=== PATIENT | male | born 1955 | race Caucasian/White ===

== ENCOUNTER 2016-05-06 10:30 | Inpatient (IN) | payer SELFPAY ==
--- NOTE | 2016-05-06 10:40 | ER Document Report ---
ED Medical Screen (RME) - General Stated Complaint: DIFFICULTY BREATHING Mode of Arrival: Ambulatory Information source: Patient Notes: 60 y/o M presents to ED c/o right sided chest/thorax pain worse with cough and deep breathing which began last week. Reports associated sob, fever, and productive cough. States evaluated at urgent care last week but symptoms worsening. I have greeted and performed a rapid initial assessment of this patient. A comprehensive ED assessment and evaluation of the patient, analysis of test results and completion of the medical decision making process will be conducted by additional ED providers. TRAVEL OUTSIDE OF THE [place] IN LAST 30 DAYS: No - Related Data Allergies/Adverse Reactions: No Known Allergies Allergy (Unverified 06/03/14 19:47) Past Medical History - Past Medical History Cardiac Medical History: Reports: Hx Hypertension Past Surgical History: Reports: Hx Cholecystectomy, Hx Orthopedic Surgery - L arm Physical Exam - General General appearance: Alert In distress: None - Respiratory Respiratory status: No respiratory distress
[2016-05-06 11:26] LABS: ABSOLUTE EOSINOPHILS # (AUTO) 0.2 10^3/uL (0.0-0.6); ABSOLUTE LYMPHOCYTES (AUTO) 1.6 10^3/uL (0.5-4.7); ABSOLUTE NEUT (AUTO) 7.4 10^3/uL (1.7-8.2); BASOPHILS % (AUTO) 0.5 % (0-2); EOSINOPHILS % (AUTO) 1.5 % (0-6); HEMATOCRIT 42.7 % (37.9-51.0); HEMOGLOBIN 14.5 g/dL (13.5-17.0); HGB HCT DIFFERENCE 0.8; MEAN CORPUSCULAR HEMOGLOBIN 31.8 pg (27.0-33.4); MEAN CORPUSCULAR VOLUME 94 fl (80-97); MONOCYTES % (AUTO) 9.9 % (3-13); RED BLOOD COUNT 4.56 10^6/uL (4.35-5.55); RED CELL DISTRIBUTION WIDTH 12.6 % (11.5-14.0); SEGMENTED NEUTROPHILS % (AUTO) 72.1 % (42-78); WHITE BLOOD COUNT 10.3 10^3/uL (4.0-10.5)
[2016-05-06 11:44] LABS: ALANINE AMINOTRANSFERASE 106 U/L (21-72); ALBUMIN 3.5 g/dL (3.5-5.0); ALKALINE PHOSPHATASE 108 U/L (38-126); ANION GAP 14 (5-19); ASPARTATE AMINO TRANSFERASE 62 U/L (17-59); BLOOD UREA NITROGEN 28 mg/dL (7-20); CALCIUM 9.5 mg/dL (8.4-10.2); CARBON DIOXIDE 29 mmol/L (22-30); CHLORIDE 98 mmol/L (98-107); CREATININE RESULT 1.06 mg/dL (0.52-1.25); GLUCOSE 144 mg/dL (75-110); POTASSIUM 3.6 mmol/L (3.6-5.0); SODIUM 140.5 mmol/L (137-145); TOTAL PROTEIN 6.9 g/dL (6.3-8.2)
--- NOTE | 2016-05-06 12:24 | ER Document Report ---
ED General - General Mode of Arrival: Ambulatory Information source: Patient TRAVEL OUTSIDE OF THE [place] IN LAST 30 DAYS: No - HPI Onset: Other - 6 days Onset/Duration: Persistent Quality of pain: Achy, Other Severity: Severe Pain Level: 5 Associated symptoms: Fever Exacerbated by: Supine Relieved by: Denies Similar symptoms previously: Yes Recently seen / treated by doctor: Yes <DARLENE BRITT - Last Filed: 05/06/16 14:36> <DAYANARA HARTMAN - Last Filed: 05/06/16 15:28> - General Chief Complaint: Shortness Of Breath Stated Complaint: DIFFICULTY BREATHING Notes: Patient presents to the emergency department with complaints of problem breathing pain in the right chest and right back since Saturday. Patient also reports fever of 102 Saturday. Last fever was 100 on Saturday night. Patient reports he's been evaluated at an urgent care clinic and treated with Zithromax cough medicine and Celebrex. He also reports he received a chest x-ray and told they saw shadowing. Patient reports he is unable to lay flat because he feels like he cannot breathe. He denies history of asthma COPD. 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 He has been off work since Saturday. 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 Lives with: Family Family History: Reviewed & Not Pertinent Patient has suicidal ideation: No Patient has homicidal ideation: No - Past Medical History Cardiac Medical History: Reports: Hx Hypertension Renal/ Medical History: Denies: Hx Peritoneal Dialysis Traumatic Medical History: Reports: Hx Fractures Past Surgical History: Reports: Hx Cholecystectomy, Hx Orthopedic Surgery - L arm <DARLENE BRITT - Last Filed: 05/06/16 14:36> Review of Systems <DARLENE BRITT - Last Filed: 05/06/16 14:36> <DAYANARA HARTMAN - Last Filed: 05/06/16 15:28> - Review of Systems Notes: Review HPI for review of systems., All other systems negative (DARLENE BRITT) Physical Exam <DARLENE BRITT - Last Filed: 05/06/16 14:36> <DAYANARA HARTMAN - Last Filed: 05/06/16 15:28> - Vital signs Vitals: Temp Pulse Resp BP Pulse Ox 97.6 F 102 H 18 120/61 94 05/06/16 10:34 05/06/16 10:34 05/06/16 10:34 05/06/16 10:34 05/06/16 10:34 (DARLENE BRITT) (DAYANARA HARTMAN) - Notes Notes: PHYSICAL EXAMINATION: GENERAL: Well-appearing and in no acute distress nontoxic looking HEAD: Atraumatic, normocephalic. EYES: Pupils equal round extraocular movements intact, sclera anicteric, conjunctiva are normal. ENT: nares patent, Moist mucous membranes. NECK: Normal range of motion, supple without lymphadenopathy LUNGS: CTAB and equal. No wheezes rales or rhonchi. no respiratory distress HEART: tachy ABDOMEN: Soft, no tenderness. No guarding, no rebound denies pain EXTREMITIES: Normal range of motion, no pitting edema. NEUROLOGICAL: Cranial nerves grossly intact. Normal sensory/motor PSYCH: Normal mood, normal affect. SKIN: Warm, Dry, normal turgor, no rashes or lesions noted (DARLENE BRITT) Course - Laboratory Result Diagrams: 05/06/16 10:55 05/06/16 10:55 - Diagnostic Test Radiology reviewed: Image reviewed, Reports reviewed - IMPRESSION: Multiple peripheral pulmonary emboli in both lungs. Right pleural effusion and right basilar opacity. - EKG Interpretation by Me Heart block present: 1st Degree <DARLENE BRITT - Last Filed: 05/06/16 14:36> - Laboratory Result Diagrams: 05/06/16 10:55 05/06/16 10:55 <DAYANARA HARTMAN - Last Filed: 05/06/16 15:28> - Re-evaluation Re-evalutation: 05/06/16 12:24 I have consulted the attending provider Dr Hartman, per [facility] guidelines 05/06/16 Patient ambulated to radiology and back O2 sats to 97%. Patient complains of pain when trying to lay supine. Patient reports was very difficult trying to get the CT done because of laying supine Dr Powersed consult for admission. Patient to be admitted IMCU. Patient and informed of PE and admission. Verbalized understanding. (DARLENE BRITT) I have discussed case with Darlene Britt, seen the patient personally and examine him. I have reviewed the CT scan which shows bilateral pulmonary emboli. The patient will be admitted to the hospital. He is received Lovenox and morphine for pain. Currently, he is more comfortable and is hemodynamically stable and is alert and oriented 3. He is sitting up watching the football game. 05/06/16 15:27 (DAYANARA HARTMAN) - Vital Signs Vital signs: Temp Pulse Resp BP Pulse Ox 97.6 F 102 H 21 H 132/89 H 95 05/06/16 10:34 05/06/16 10:34 05/06/16 14:03 05/06/16 14:03 05/06/16 14:03 (DARLENE BRITT) (DAYANARA HARTMAN) - Laboratory Laboratory results interpreted by me: 05/06/16 05/06/16 10:55 11:20 BUN 28 H Glucose 144 H AST 62 H ALT 106 H Urine Urobilinogen 2.0 H Urine Ascorbic Acid 40 H (DARLENE BRITT) (DAYANARA HARTMAN) Discharge - Discharge Admitting Provider: Hospitalist - BUSTEED Unit Admitted: IMCU <DARLENE BRITT - Last Filed: 05/06/16 14:36> <DAYANARA HARTMAN - Last Filed: 05/06/16 15:28> - Discharge Clinical Impression: Pulmonary emboli Pneumonia Qualifiers: Pneumonia type: due to unspecified organism Laterality: right Lung location: lower lobe of lung Qualified Code(s): J18.1 - Lobar pneumonia, unspecified organism Condition: Stable Disposition: ADMITTED INPATIENT
--- NOTE | 2016-05-06 12:26 | EKG REPORT ---
SEVERITY:- ABNORMAL ECG - SINUS RHYTHM FIRST DEGREE AV BLOCK NONSPECIFIC T ABNORMALITIES, INFERIOR LEADS : Confirmed by: Rolando Rodriguez MD 06-May-2016 12:26:30
[2016-05-06 12:48] LABS: APPEARANCE,URINE SLIGHTLY-CLOUDY; BILIRUBIN,URINE NEGATIVE (NEGATIVE); GLUCOSE, URINE NEGATIVE (NEGATIVE); KETONES,URINE NEGATIVE (NEGATIVE); LEUKOCYTE ESTERASE,URINE NEGATIVE (NEGATIVE); NITRITE,URINE NEGATIVE (NEGATIVE); PROTEIN,URINE NEGATIVE (NEGATIVE); URINE SPECIFIC GRAVITY 1.024
[2016-05-06] MEDS ORDERED: NORMAL SALINE 1000 ML 1,000 ML IV ONE (13:35)
[2016-05-06] MEDS ORDERED: ENOXAPARIN SODIUM INJ 100 MG/1 ML DISP.SYRIN SUBCUT ONE (14:00)
[2016-05-06 14:09] LABS: PROTHROMBIN TIME 14.6 SEC (11.4-15.4)
[2016-05-06] MEDS ORDERED: ONDANSETRON HCL INJ/PF 4 MG/2 ML SDV IV PRN (14:13)
[2016-05-06] MEDS ORDERED: ACETAMINOPHEN 325 MG TABLET PO PRN (14:13)
[2016-05-06] MEDS ORDERED: ONDANSETRON 4 MG TAB.RAPDIS PO PRN (14:13)
[2016-05-06] MEDS ORDERED: ALBUTEROL SULFATE 0.083% NEB 2.5 MG/3 ML AMPUL NEB PRN (14:13)
[2016-05-06] MEDS ORDERED: MORPHINE SULFATE 10 MG/ML INJ IV PRN (14:20)
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
[2016-05-06] MEDS: NORMAL SALINE 1000 ML 1,000 ML IV PRN (14:53)
[2016-05-06] MEDS ORDERED: LEVOFLOXACIN 750 MG/D5W RTU 750 MG/150 ML RTUPB IV ONE (15:00)
[2016-05-06] MEDS: MORPHINE SULFATE 10 MG/ML INJ IV PRN ×2 (17:45→22:30)
[2016-05-06] MEDS: ENOXAPARIN SODIUM INJ 100 MG/1 ML DISP.SYRIN SUBCUT SCH (22:30)
[2016-05-07] MEDS: MORPHINE SULFATE 10 MG/ML INJ IV PRN ×6 (00:20→20:20)
[2016-05-07] MEDS: OXYCODONE-ACETAMINOPHEN 5-325 MG TABLET PO PRN ×4 (00:38→20:20)
[2016-05-07] MEDS: NORMAL SALINE 1000 ML 1,000 ML IV PRN ×3 (00:59→20:00)
[2016-05-07] MEDS ORDERED: INFLUENZA ADLT QUAD (36MOS+) 2016-17 VAC 0.5 ML SYR IM PRN (01:43)
[2016-05-07 03:41] LABS: APPEARANCE,URINE CLEAR; BILIRUBIN,URINE NEGATIVE (NEGATIVE); GLUCOSE, URINE NEGATIVE (NEGATIVE); KETONES,URINE NEGATIVE (NEGATIVE); LEUKOCYTE ESTERASE,URINE NEGATIVE (NEGATIVE); NITRITE,URINE NEGATIVE (NEGATIVE); PROTEIN,URINE NEGATIVE (NEGATIVE); URINE SPECIFIC GRAVITY 1.032
[2016-05-07 04:35] LABS: HEMATOCRIT 39.2 % (37.9-51.0); HEMOGLOBIN 13.1 g/dL (13.5-17.0); HGB HCT DIFFERENCE 0.1; MEAN CORPUSCULAR HGB CONC 33.4 g/dL (32.0-36.0); MEAN CORPUSCULAR VOLUME 96 fl (80-97); RED BLOOD COUNT 4.09 10^6/uL (4.35-5.55); RED CELL DISTRIBUTION WIDTH 12.6 % (11.5-14.0); WHITE BLOOD COUNT 10.6 10^3/uL (4.0-10.5)
[2016-05-07 05:06] LABS: ANION GAP 11 (5-19); BLOOD UREA NITROGEN 21 mg/dL (7-20); CALCIUM 8.8 mg/dL (8.4-10.2); CARBON DIOXIDE 26 mmol/L (22-30); CHLORIDE 100 mmol/L (98-107); CREATININE RESULT 0.95 mg/dL (0.52-1.25); GLUCOSE 92 mg/dL (75-110); MAGNESIUM 1.9 mg/dL (1.6-2.3); POTASSIUM 3.8 mmol/L (3.6-5.0); SODIUM 136.5 mmol/L (137-145)
[2016-05-07] MEDS: ENOXAPARIN SODIUM INJ 100 MG/1 ML DISP.SYRIN SUBCUT SCH ×2 (10:27→22:36)
[2016-05-07] MEDS: LEVOFLOXACIN 750 MG/D5W RTU 750 MG/150 ML RTUPB IV SCH (10:27)
--- NOTE | 2016-05-07 12:39 | PDOC PROGRESS REPORT ---
Subjective Progress Note for:: 05/07/16 Subjective:: Complaints of swelling and pain in his left calf. Physical Exam Vital Signs: Temp Pulse Resp BP Pulse Ox 98.1 F 71 16 102/63 93 05/07/16 07:10 05/07/16 10:48 05/07/16 10:48 05/07/16 07:10 05/07/16 10:48 Intake & Output 05/06/16 05/07/16 05/08/16 06:59 06:59 06:59 Intake Total 900 Output Total 300 Balance 600 Weight 91.7 kg General appearance: PRESENT: no acute distress Eye exam: PRESENT: conjunctiva pink. ABSENT: scleral icterus Ear exam: PRESENT: normal external ear exam Mouth exam: PRESENT: moist, tongue midline Neck exam: ABSENT: JVD Respiratory exam: PRESENT: rhonchi - Coarse rhonchi in the bases. Cardiovascular exam: PRESENT: RRR. ABSENT: diastolic murmur, rubs, systolic murmur GI/Abdominal exam: PRESENT: normal bowel sounds, soft. ABSENT: distended, guarding, mass, organolmegaly, rebound, tenderness Extremities exam: PRESENT: calf tenderness - Tender left calf., pedal edema - Trace edema on the left.. ABSENT: clubbing Neurological exam: PRESENT: alert, awake, oriented to person, oriented to place , oriented to time, oriented to situation, CN II-XII grossly intact. ABSENT: motor sensory deficit Psychiatric exam: PRESENT: appropriate affect Skin exam: PRESENT: dry, intact, warm. ABSENT: cyanosis, rash Results Laboratory Results: 05/07/16 03:55 05/07/16 03:55 05/07/16 05/07/16 05/07/16 01:35 03:55 03:55 WBC 10.6 H RBC 4.09 L Hgb 13.1 L Hct 39.2 MCV 96 MCH 32.0 MCHC 33.4 RDW 12.6 Plt Count 202 Sodium 136.5 L Potassium 3.8 Chloride 100 Carbon Dioxide 26 Anion Gap 11 BUN 21 H Creatinine 0.95 Est GFR ( Amer) > 60 Est GFR (Non-Af Amer) > 60 Glucose 92 Calcium 8.8 Magnesium 1.9 Urine Color YELLOW Urine Appearance CLEAR Urine pH 5.0 Ur Specific [place] 1.032 Urine Protein NEGATIVE Urine Glucose (UA) NEGATIVE Urine Ketones NEGATIVE Urine Blood NEGATIVE Urine Nitrite NEGATIVE Ur Leukocyte Esterase NEGATIVE Urine WBC (Auto) 1 Urine RBC (Auto) 0 Impressions: Chest X-Ray 05/06/16 10:36 IMPRESSION: NO SIGNIFICANT RADIOGRAPHIC FINDING IN THE CHEST. Chest/Abdomen CTA 05/06/16 12:23 IMPRESSION: Multiple peripheral pulmonary emboli in both lungs. Right pleural effusion and right basilar opacity. Assessment & Plan - Diagnosis (1) Pulmonary emboli Is this a current diagnosis for this admission?: YesPlan: Patient has bilateral pulmonary emboli. He is not hypoxic but he is tachycardic. The patient has been started on Lovenox and will continue with that. We'll start the patient on Coumadin tonight. The patient does not have health insurance at this time. 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 Today has a swollen left leg and we will get a Doppler ultrasound to rule out DVT. He has been having some fevers and has what appears to be pneumonia on CAT scan but the possibility this representing pulmonary infarction is considered we will cover with Levaquin. (2) Pneumonia Qualifiers: Pneumonia type: due to unspecified organism Laterality: right Lung location: lower lobe of lung Qualified Code(s): J18.1 - Lobar pneumonia, unspecified organism Is this a current diagnosis for this admission?: YesPlan: Patient has significant amount of chest pain most likely secondary to his pulmonary emboli however he does have an infiltrate in the right. The patient was treated initially with azithromycin we will change to Levaquin for now. Will get blood and sputum cultures. (3) Hypertension Is this a current diagnosis for this admission?: YesPlan: Patient has been on lisinopril hydrochlorothiazide. We'll hold for now and restart if his blood pressure increases. (4) Psoriasis Is this a current diagnosis for this admission?: YesPlan: No evidence for active lesions at this time. - Time Time Spent with patient: 25-34 minutes - Inpatient Certification Medical Necessity: Need Close Monitoring Due to Risk of Patient Decompensation - Plan Summary Plan Summary: The patient has experience with Lovenox and Coumadin in a previous family member had a DVT. He may be able to be discharged tomorrow on Lovenox and Coumadin dependent how he does from respiratory standpoint with the pneumonia.
--- NOTE | 2016-05-07 16:34 | XCELERA REPORT ---
[address] [address] Lower Extremity Venous Evaluation Name: FEDERICA MARCANO Age: 60 yrs Gender: Male : 1955 Patient Status: Inpatient Patient Location: [id number] Study Date: 05/07/2016 01:14 PM Procedure: Color flow and duplex imaging of the veins of the left lower extremity as well as the right Common Femoral vein. Reason For Study: swollen left leg Ordering Physician: DEEPTHI GALARZA Performed By: Tiesha Minor Right Sided Venous Evaluation The right common femoral vein is fully compressible. Spontaneous and phasic flow is present in the right common femoral vein. Left Sided Venous Evaluation Abnormal vessel filling , limited compression and no Colour flow in the Popliteal and 1 of 2 Posterior Tibial veins. Critical Findings Discussed with Dr Galarza at about 1630 hours. Interpretation Summary Left lower extremity DVT, as noted, some fairly acute. The patient is on Lovenox. : DEEPTHI GALARZA > Jose Hernandez
[2016-05-07] MEDS: WARFARIN SODIUM 5 MG TABLET PO SCH (22:37)
[2016-05-08 04:54] LABS: PROTHROMBIN TIME 15.5 SEC (11.4-15.4)
[2016-05-08] MEDS: OXYCODONE-ACETAMINOPHEN 5-325 MG TABLET PO PRN ×3 (05:12→22:46)
[2016-05-08] MEDS: MORPHINE SULFATE 10 MG/ML INJ IV PRN ×4 (05:41→23:08)
[2016-05-08] MEDS: ENOXAPARIN SODIUM INJ 100 MG/1 ML DISP.SYRIN SUBCUT SCH ×2 (09:53→22:46)
[2016-05-08] MEDS: LEVOFLOXACIN 750 MG/D5W RTU 750 MG/150 ML RTUPB IV SCH (09:54)
[2016-05-08] MEDS: NORMAL SALINE 1000 ML 1,000 ML IV PRN (09:54)
--- NOTE | 2016-05-08 15:32 | PDOC PROGRESS REPORT ---
Subjective Progress Note for:: 05/08/16 Subjective:: Lower extremity edema on the left. It is unchanged but it is painful at times. Positive hemoptysis with pleurisy especially on the right. Denies any chills or fever. Denies any shortness of breath at this time. No diarrhea. Physical Exam Vital Signs: Temp Pulse Resp BP Pulse Ox 97.4 F 78 16 120/68 97 05/08/16 11:05 05/08/16 11:05 05/08/16 11:05 05/08/16 11:05 05/08/16 11:05 Intake & Output 05/07/16 05/08/16 05/09/16 06:59 06:59 06:59 Intake Total 900 1623 Output Total 300 825 Balance 600 798 Weight 91.7 kg 92.6 kg General appearance: PRESENT: no acute distress, cooperative Head exam: PRESENT: normocephalic Eye exam: PRESENT: EOMI, PERRLA Mouth exam: PRESENT: moist, neck supple Neck exam: ABSENT: JVD Respiratory exam: PRESENT: clear to auscultation ricky. ABSENT: rhonchi, wheezes Cardiovascular exam: PRESENT: RRR. ABSENT: gallop GI/Abdominal exam: PRESENT: normal bowel sounds, soft. ABSENT: distended, tenderness Extremities exam: PRESENT: +1 edema - Left lower extremity Neurological exam: PRESENT: alert, awake, oriented to person, oriented to place , oriented to time, oriented to situation Psychiatric exam: ABSENT: agitated Focused psych exam: ABSENT: restlessness Skin exam: PRESENT: dry, warm. ABSENT: cyanosis Results Laboratory Results: 05/07/16 03:55 05/07/16 03:55 05/06/16 21:37 Sputum Gram Stain - Final 05/06/16 21:37 Sputum Sputum Culture - Final NORMAL SALMA Impressions: Chest X-Ray 05/06/16 10:36 IMPRESSION: NO SIGNIFICANT RADIOGRAPHIC FINDING IN THE CHEST. Chest/Abdomen CTA 05/06/16 12:23 IMPRESSION: Multiple peripheral pulmonary emboli in both lungs. Right pleural effusion and right basilar opacity. Assessment & Plan - Time Time Spent with patient: 25-34 minutes - Plan Summary Plan Summary: We are going to continue anticoagulation and check PT/INR in the morning. In the meantime we will culture the sputum and repeat hematocrit in the morning. Patient was counseled regarding his lower extremity edema as well as DVT. Likewise the patient was counseled regarding pulmonary embolism, anticoagulation and pneumonia and hemoptysis. All questions were answered to his satisfaction. Continue current antibiotics. We will humidify oxygen. We will check home oxygen requirements.
[2016-05-08] MEDS ORDERED: NORMAL SALINE 1000 ML 1,000 ML IV PRN (15:33)
[2016-05-08] MEDS: WARFARIN SODIUM 5 MG TABLET PO SCH (22:46)
[2016-05-09 04:42] LABS: HEMOGLOBIN 12.9 g/dL (13.5-17.0); HGB HCT DIFFERENCE 0.7; MEAN CORPUSCULAR VOLUME 94 fl (80-97); RED BLOOD COUNT 4.04 10^6/uL (4.35-5.55); RED CELL DISTRIBUTION WIDTH 12.3 % (11.5-14.0); WHITE BLOOD COUNT 8.4 10^3/uL (4.0-10.5)
[2016-05-09 04:48] LABS: PROTHROMBIN TIME 15.3 SEC (11.4-15.4)
[2016-05-09] MEDS: MORPHINE SULFATE 10 MG/ML INJ IV PRN ×2 (06:21→21:15)
[2016-05-09] MEDS: OXYCODONE-ACETAMINOPHEN 5-325 MG TABLET PO PRN (06:21)
[2016-05-09] MEDS: ENOXAPARIN SODIUM INJ 100 MG/1 ML DISP.SYRIN SUBCUT SCH (09:48)
[2016-05-09] MEDS: LEVOFLOXACIN 750 MG/D5W RTU 750 MG/150 ML RTUPB IV SCH (09:50)
[2016-05-09] MEDS ORDERED: POLYETHYLENE GLYCOL 3350 POWDER 17 GM/1 PACKET PO ONE (15:30)
--- NOTE | 2016-05-09 15:43 | PDOC PROGRESS REPORT ---
Subjective Progress Note for:: 05/09/16 Subjective:: Lower extremity edema on the left. It is unchanged but it is painful at times. Positive hemoptysis with pleurisy especially on the right but better than during admission reportedly getting less as well. Denies any chills or fever. Denies any shortness of breath at this time. No diarrhea. We will air oxygenation 97% as reported by staff. Has constipation. Physical Exam Vital Signs: Temp Pulse Resp BP Pulse Ox 97.7 F 88 20 146/86 H 96 05/09/16 11:47 05/09/16 14:00 05/09/16 11:47 05/09/16 11:47 05/09/16 11:47 Intake & Output 05/08/16 05/09/16 05/10/16 06:59 06:59 06:59 Intake Total 1623 4042 355 Output Total 825 3820 1500 Balance 798 222 -1145 Weight 92.6 kg 92.5 kg General appearance: PRESENT: no acute distress, cooperative Head exam: PRESENT: normocephalic Eye exam: PRESENT: EOMI Mouth exam: PRESENT: moist, neck supple Neck exam: ABSENT: JVD Respiratory exam: PRESENT: clear to auscultation ricky - Anteriorly, rhonchi - Occasional posteriorly Cardiovascular exam: PRESENT: RRR GI/Abdominal exam: PRESENT: soft. ABSENT: distended, tenderness Extremities exam: PRESENT: +1 edema - Left side Neurological exam: PRESENT: alert, awake, oriented to situation Psychiatric exam: PRESENT: normal mood. ABSENT: agitated Focused psych exam: ABSENT: restlessness Skin exam: PRESENT: dry, warm. ABSENT: cyanosis Results Laboratory Results: 05/09/16 03:48 05/07/16 03:55 05/09/16 03:48 WBC 8.4 RBC 4.04 L Hgb 12.9 L Hct 38.0 MCV 94 MCH 32.0 MCHC 34.0 RDW 12.3 Plt Count 218 05/06/16 21:37 Sputum Gram Stain - Final 05/06/16 21:37 Sputum Sputum Culture - Final NORMAL SALMA Impressions: Chest X-Ray 05/06/16 10:36 IMPRESSION: NO SIGNIFICANT RADIOGRAPHIC FINDING IN THE CHEST. Chest/Abdomen CTA 05/06/16 12:23 IMPRESSION: Multiple peripheral pulmonary emboli in both lungs. Right pleural effusion and right basilar opacity. Assessment & Plan - Time Time Spent with patient: 25-34 minutes - Plan Summary Plan Summary: We will begin the patient on eliquis. Patient prefers the medication record and the warfarin. We will recheck hemoglobin and hematocrit in the morning. We will begin MiraLAX. Tessalon Perles for coughing. We'll discontinue IV fluids. If patient is stable possible discharge in the morning. Consult cyber policy and strategy planner for medication assistance.
--- NOTE | 2016-05-09 16:02 | Progress Note ---
Provider Note Provider Note: Addendum to progress note: Problem list: Right lower lobe pneumonia, pulmonary embolism, deep venous anastomosis of the left lower extremity, hypertension, history of psoriasis.
[2016-05-09] MEDS ORDERED: HYDROCHLOROTHIAZIDE 25 MG TABLET PO ONE (16:30)
[2016-05-09] MEDS: APIXABAN 5 MG TABLET PO SCH (17:54)
[2016-05-09 19:12] LABS: APPEARANCE,URINE CLEAR; BILIRUBIN,URINE NEGATIVE (NEGATIVE); GLUCOSE, URINE NEGATIVE (NEGATIVE); KETONES,URINE NEGATIVE (NEGATIVE); LEUKOCYTE ESTERASE,URINE NEGATIVE (NEGATIVE); NITRITE,URINE NEGATIVE (NEGATIVE); PROTEIN,URINE NEGATIVE (NEGATIVE); URINE SPECIFIC GRAVITY 1.008; UROBILINOGEN,URINE NEGATIVE mg/dL (<2.0)
[2016-05-09] MEDS: BENZONATATE 100 MG CAPSULE PO SCH (21:15)
[2016-05-10] MEDS ORDERED: LORAZEPAM 0.5 MG TABLET ONE (02:18)
[2016-05-10 04:41] LABS: HEMATOCRIT 40.2 % (37.9-51.0); HEMOGLOBIN 13.3 g/dL (13.5-17.0); HGB HCT DIFFERENCE -0.3; MEAN CORPUSCULAR HEMOGLOBIN 31.6 pg (27.0-33.4); MEAN CORPUSCULAR HGB CONC 33.2 g/dL (32.0-36.0); MEAN CORPUSCULAR VOLUME 95 fl (80-97); RED BLOOD COUNT 4.23 10^6/uL (4.35-5.55); RED CELL DISTRIBUTION WIDTH 12.4 % (11.5-14.0); WHITE BLOOD COUNT 8.1 10^3/uL (4.0-10.5)
[2016-05-10] MEDS: BENZONATATE 100 MG CAPSULE PO SCH ×2 (05:13→17:06)
[2016-05-10] MEDS ORDERED: LEVOFLOXACIN 750 MG TABLET PO SCH (10:00)
[2016-05-10] MEDS ORDERED: POLYETHYLENE GLYCOL 3350 POWDER 17 GM/1 PACKET PO SCH (10:00)
[2016-05-10] MEDS ORDERED: HYDROCHLOROTHIAZIDE 25 MG TABLET PO SCH (10:00)
[2016-05-10] MEDS: OXYCODONE-ACETAMINOPHEN 5-325 MG TABLET PO PRN (10:50)
[2016-05-10] MEDS: APIXABAN 5 MG TABLET PO SCH (10:50)
--- NOTE | 2016-05-10 16:05 | PDOC DISCHARGE SUMMARY ---
General - Admit/Disc Date/PCP Admission Date/Primary Care Provider: 05/06/16 14:13 Discharge Date: 05/10/16 - Discharge Diagnosis (1) Pulmonary emboli Is this a current diagnosis for this admission?: Yes (2) Hypertension Is this a current diagnosis for this admission?: Yes (3) Pneumonia Is this a current diagnosis for this admission?: Yes (4) Deep venous thrombosis Is this a current diagnosis for this admission?: Yes - Additional Information Resuscitation Status: Full Code Discharge Diet: Cardiac - low-fat low-salt Discharge Activity: Activity As Tolerated, Balance Activity w/Rest, Slowly Increase Activity Home Medications: Benzonatate [Tessalon Perles 100 mg Capsule] 200 mg PO Q8 PRN #40 capsule Hydrochlorothiazide [Hydrodiuril 25 mg Tablet] 25 mg PO DAILY #30 tablet Levofloxacin [Levaquin 750 mg Tablet] 750 mg PO DAILY #9 tablet 05/10/16 Oxycodone HCl/Acetaminophen [Percocet 5-325 mg Tablet] 1 tab PO Q4HP PRN #30 tablet 05/10/16 Potassium Chloride 10 meq PO DAILY #30 capsule.er 05/10/16 Rivaroxaban [Xarelto 10 mg Tablet] 20 mg PO DAILY #60 tablet 05/10/16 Rivaroxaban [Xarelto 15 mg Tablet] 15 mg PO BID #40 tablet 05/10/16 Additional Information: Xarelto 15mg BID for 20 days then 20 mg by mouth daily. History of Present Illness Patient complains of: Fever and pleuritic chest pain History of Present Illness: FEDERICA MARCANO is a 60 year old male with reported history of hypertension, was seen in a local urgent care for respiratory tract symptoms with cough as well as fever and pleurisy started on oral antibiotic with no significant help. The patient presents to the emergency room with worsening symptoms. There is associated hemoptysis as well. CT scan of the chest revealed bilateral pulmonary embolism the patient was started on anticoagulation and was referred for admission. As x-ray did reveal right lower lobe infiltrate. For details, please refer to history and physical examination performed by the admitting physician. Hospital Course Hospital Course: The patient was admitted to the [facility]. Patient was started on intravenous antibiotics. Patient was likewise started on Lovenox and warfarin. Initial culture of the sputum was negative and the repeat sputum growing gram-positive cocci in pairs and chains. The patient was shifted to oral Levaquin. In terms of chronic anticoagulation PT/INR was monitored. Other new medications for anticoagulation were offered and the patient prefers to have the new or anticoagulants than the warfarin. The patient does not want to have repeat blood testing done. He was referred to the associate media planner for medication assistance regarding the newer anticoagulants. The patient was set up in the [facility] for continued care and follow-up as well. The patient clinically improved. Lower extremity venous Doppler did reveal deep venous thrombosis on the left. Follow-up chest x-ray shows stable infiltrates on the right lower lobe. The patient's hemoglobin and hematocrit was monitored and was stable. The patient's hemoptysis started to improve as well. Clinically the patient improved and her oxygen saturation was greater than 90% on room air. The rest of the hospital stay was essentially unremarkable. Electrolytes were monitored and replaced. He was eventually discharged home improved with above instructions. Physical Exam Vital Signs: Temp Pulse Resp BP Pulse Ox 98.0 F 83 19 136/80 H 95 05/10/16 11:38 05/10/16 11:38 05/10/16 11:38 05/10/16 11:38 05/10/16 11:38 Intake & Output 05/09/16 05/10/16 05/11/16 06:59 06:59 06:59 Intake Total 4042 3544 710 Output Total 3820 3850 1500 Balance 222 -306 -790 Weight 92.5 kg 90.6 kg General appearance: PRESENT: no acute distress, cooperative Head exam: PRESENT: normocephalic Eye exam: PRESENT: EOMI, PERRLA Mouth exam: PRESENT: moist, neck supple Neck exam: ABSENT: JVD Respiratory exam: PRESENT: clear to auscultation ricky - Anteriorly, rhonchi - few posteriorly on the right lower lung field Cardiovascular exam: PRESENT: RRR. ABSENT: gallop GI/Abdominal exam: PRESENT: soft. ABSENT: distended, tenderness Extremities exam: PRESENT: +1 edema - Left lower extremity Neurological exam: PRESENT: alert, awake, oriented to person, oriented to place , oriented to time, oriented to situation Skin exam: PRESENT: dry, warm. ABSENT: cyanosis Results Laboratory Results: 05/10/16 03:43 05/07/16 03:55 01/05/09/16 05/10/16 17:50 20:13 03:43 WBC 8.1 RBC 4.23 L Hgb 13.3 L Hct 40.2 MCV 95 MCH 31.6 MCHC 33.2 RDW 12.4 Plt Count 251 Urine Color STRAW Urine Appearance CLEAR Urine pH 8.0 Ur Specific Boley 1.008 Urine Protein NEGATIVE Urine Glucose (UA) NEGATIVE Urine Ketones NEGATIVE Urine Blood NEGATIVE Urine Nitrite NEGATIVE Ur Leukocyte Esterase NEGATIVE Urine RBC (Auto) 0 Stool Occult Blood NEGATIVE Impressions: Chest/Abdomen CTA 05/06/16 12:23 IMPRESSION: Multiple peripheral pulmonary emboli in both lungs. Right pleural effusion and right basilar opacity. Chest X-Ray 05/10/16 00:00 IMPRESSION: No change in small right pleural effusion with right lower lobe airspace disease. Qualifiers PATEINT BEING DISCHARGED WITH ANY OF THE FOLLOWING DIAGNOSIS?: VTE (PE or DVT) VTE patient discharged on overlapping Therapy?: No Reason(s) for not prescribing Overlap Therapy:: Not indicated - Patient discharged on Xarelto Plan Discharge Plan: Follow-up with primary care physician in one week. Time Spent: Less than 30 Minutes
[2016-05-10 16:53] VITALS: BP 128/75
[2016-05-10] MEDS ORDERED: POTASSIUM CHLORIDE 10 MEQ TABLET.SA PO ONE (17:00)
== END 2016-05-10 17:17 | disposition home or self-care (01) | DRG 175 ==
LOC: ER 10:30 → EH 14:13 → UNDOADMIN 14:14 → 3N 22:45
PROVIDERS: ADMIT Internal Medicine; ATTEND Internal Medicine
PROC: 3E0234Z Introduction of Serum, Toxoid and Vaccine into Muscle, Percutaneous Approach (ICD-10-PCS; principal; 2016-05-10)
DX: I26.99 Other pulmonary embolism without acute cor pulmonale (principal); J18.9 Pneumonia, unspecified organism; I82.4Z2 Acute embolism and thrombosis of unspecified deep veins of left distal lower extremity; I10 Essential (primary) hypertension; L40.9 Psoriasis, unspecified; Z87.891 Personal history of nicotine dependence; Z23 Encounter for immunization
CPT/HCPCS: 36415; 71020; 71275; 80048; 80053; 81001; 82272; 83735; 85025; 85027; 85610; 87070; 87205; 90686; 93005; 93010; 93971; 96372; 99285; J1650; J1956; J2270; J3490; J7030

== ENCOUNTER → 2016-05-28 | Outpatient (CLI) | payer OTHER ==
[2016-05-28 16:42] LABS: PROTHROMBIN TIME 24.2 SEC (11.4-15.4)
== END ==
LOC: OD 15:48
DX: I82.409 Acute embolism and thrombosis of unspecified deep veins of unspecified lower extremity (principal)
CPT/HCPCS: 36415; 85610

== ENCOUNTER → 2016-07-10 | Outpatient (CLI) | payer OTHER ==
[2016-07-12 07:42] LABS: HEPATITIS A AB TOTAL Negative (Negative)
== END ==
LOC: CCC 16:01
DX: R94.5 Abnormal results of liver function studies (principal); Z12.5 Encounter for screening for malignant neoplasm of prostate
CPT/HCPCS: 36415; 84153; 86317; 86708; 86709; 86803; 86804; 87340; 87522

== ENCOUNTER → 2016-07-10 | Outpatient (CLI) | payer OTHER | LOC: CCC 10:00 | DX: I82.409 Acute embolism and thrombosis of unspecified deep veins of unspecified lower extremity (principal) | CPT/HCPCS: 36415; 85610 ==